=== PATIENT | female | born 1945 | race Caucasian/White ===

== ENCOUNTER → 2016-07-05 | Outpatient (CLI) | payer MEDICARE ==
[~2016-07-05] MED LIST: ACCUNEB SOL3 ML/NE1 IN; ALBUTEROL200 PUFFS/ IH; ALEVE220 MG PO; CALCIUM CARBONA1 TAB PO; CITALOPRAM HYDR40 MG PO; CITALOPRAM20 MG PO; CYANOCOBAL1000 MCG/2 IM; CYMBALTA30 MG PO; DIFLUCAN150 MG PO; FIORICET W/CODE1 CAP PO; FLUCONAZOLE150 MG PO; GABAPENTIN300 MG PO; HYDROCODONE-APA1 TA1 PO; KEFLEX 500MG.500 MG PO; LEVAQUIN 750 M750 MG PO; LEXAPRO 10 MG T10 MG PO; LORTAB 5/500 501 TAB PO; MACROBID 100MG100 MG PO; METHSCOPOLAMIN2.5 MG PO; MUCINEX600 M1 PO; OMNICEF 300 MG300 MG PO; PHENERGAN 25MG.25 M1 PO; PREDNISONE 20MG20 MG PO; PROTONIX 40MG T40 MG PO; PYRIDIUM 200MG200 MG PO; SINGULAIR 10 MG10 MG PO; SINGULAIR10 MG PO; SYMBICORT IH; SYMBICORT1 AER IH; TIZANIDINE4 MG PO; VERAMYST27.5 MCG/A NS; VITAMIN B121 TA1 IM; XANAX 1MG TABLET1 MG PO; XANAX0.5 MG PO; ZIAC 2.5 MG-6.21 TAB PO; ZOFRAN ODT4 MG PO; ZYRTEC10 M2 PO
[2016-07-05 09:23] LABS: BUN 13 mg/dL (7-18)
[2016-07-05 09:25] LABS: GFR (ESTIMATED) 121 ML/MIN (59-)
--- NOTE | 2016-07-08 07:23 | RADIOLOGY REPORT PS360 ---
CT ABD PELVIS W/WO CONTRAST INDICATION: CHRONIC UTI, LOWER ABD PAIN ORDERING PHYSICIAN: Tracy Blanco APRN PATIENT AGE: 71 years COMPARISON: 11/04/2014 TECHNIQUE: Axial images are obtained without and with contrast. Sagittal and coronal reformatted images are reviewed as well. FINDINGS: There is been a prior cholecystectomy. There is minimal prominence of the biliary radicles. A peripheral area of isointensity involves the posterior medial aspect of the right hepatic lobe at 18 x 19 mm not significantly changed showing some filling in on the venous phase images probably related to a hemangioma as previously described. No additional liver lesions are evident. The spleen, adrenal glands, and pancreas are unremarkable. No obstructing renal or ureteral calculi. There are small bilateral renal cyst. No solid renal mass or hydronephrosis. No urinary bladder stones. The bladder has an unremarkable appearance. No evidence of appendicitis or diverticulitis. There is diverticulosis. There is been a prior hysterectomy. No abnormal fluid collections or focal inflammatory change or mass evident. No adenopathy or aneurysm. No intestinal obstruction or free air. Moderate dextroscoliosis of the lumbar spine with generalized spondylosis and severe degenerative disc disease in the lower thoracic and upper lumbar region from T11 to L2. IMPRESSION: 1. No acute intra-abdominal or pelvic pathology. 2. Stable CT appearance of the abdomen compared to 11/04/2014. 3. No renal calculi or hydronephrosis. 4. Probable hemangioma the right lobe of the liver
== END ==
LOC: RAD 09:07
PROVIDERS: Nurse Practitioner Family
DX: R10.30 Lower abdominal pain, unspecified (principal); N39.0 Urinary tract infection, site not specified
CPT/HCPCS: Q9967

== ENCOUNTER → 2016-09-07 | Outpatient (CLI) | payer MEDICARE ==
--- NOTE | 2016-09-07 14:47 | RADIOLOGY REPORT PS360 ---
BONE DENSITOMETRY(HIP:LT SPINE HISTORY: POST MENOPAUSAL, OSTEOPENIA ORDERING PHYSICIAN: Tracy Blanco APRN PATIENT AGE: 71 years COMPARISON: None FINDINGS: The BMD measured at the left femoral neck is 0.820 g/cm squared with a T score of -1.6. This is considered Osteopenic according to the World Health Organization criteria. Fracture risk is Moderate. Treatment is advised. There is minimal left percent increase in bone density of the lumbar spine compared to 05/31/2013 and may be related to the overlying sclerotic elements of the vertebrae as opposed to true increase in bone density. The mean density of the hips is unchanged. IMPRESSION: Osteopenia, follow-up recommended August 2018.
--- NOTE | 2016-09-14 08:46 | RADIOLOGY REPORT PS360 ---
DIG MAMM-SCREEN NAHID W/CAD CAD Screening ORDERING PHYSICIAN : Tracy Blanco APRN PATIENT AGE: 71 years GENDER: Female COMPARISON: Previous mammograms: August 2015, 2014, July 2013, June 2012 INDICATION: Routine screening 71-year-old. Estrogen cream previous. Cyst aspiration right breast Noncontributory family history TECHNIQUE: Standard CC and MLO images were obtained. R2 CAD reviewed. FINDINGS: Asymmetric areas of density bilaterally again noted. . Specifically there are areas of asymmetric density seen towards upper-outer quadrant right and left breast RIGHT BREAST: Minor progression of the area labeled A.. It may be a intramammary lymph node but is shown incremental progression over the recent mammogram studies. It now measures up to 11 mm x 6 mm.. Well-defined margin but. Slightly lobulated. I believe this point it does warrant ultrasound additional & spot views.. A Area B.. More peripheral at the axillary tail of right breast is area labeled B. This is been seen over many studies and has shown overall regression. Not of concern. In fact this area fairly stable since 2012 & 2010. Most likely Asymmetric island of glandular tissue. LEFT BREAST: Stable with no significant new findings. Area of density at the lateral left breast on cc view dissipates on a this additional nipple profile cc left breast appears stable to previous studies. Follow-up left mammogram 1 year. IMPRESSION: .... . 1. Right breast: ultrasound and spot views suggested to further evaluate area labeled A . This Slightly lobulated nodular area may be benign intramammary node, but has shown progression now measuring 11 mm x 6 mm . 2. Left breast stable- follow-up in one year on left BI-RADS CATEGORY: 0_Incomplete: Need additional imaging. RECOMMENDED FOLLOWUP: ADD ADDITIONAL IMAGING (A letter has been sent to the patient regarding results of the study.)
== END ==
LOC: RAD 10:30
DX: Z12.31 Encounter for screening mammogram for malignant neoplasm of breast (principal); Z78.0 Asymptomatic menopausal state
CPT/HCPCS: G0202

== ENCOUNTER → 2016-10-13 | Outpatient (CLI) | payer MEDICARE ==
[2016-10-13 10:57] LABS: HEMOGLOBIN 12.5 g/dL (12.2-16.2); LYMPH # 1.2 K/mm3 (0.7-4.5); LYMPH % 34.2 % (10-50.0)
[2016-10-13 12:37] LABS: BUN 10 mg/dL (7-18)
[2016-10-13 12:42] LABS: GFR (ESTIMATED) 98 ML/MIN (59-)
== END ==
LOC: LAB 10:35
PROVIDERS: Nurse Practitioner Family
DX: E53.8 Deficiency of other specified B group vitamins (principal); I10 Essential (primary) hypertension; Z00.00 Encounter for general adult medical examination without abnormal findings

== ENCOUNTER → 2017-02-10 | Outpatient (CLI) | payer MEDICARE ==
[~2017-02-10] MED LIST changes: +CELEBREX 200MG200 MG PO
[2017-02-10 09:09] LABS: BUN 9 mg/dL (7-18)
[2017-02-10 09:13] LABS: GFR (ESTIMATED) 98 ML/MIN (59-)
[2017-02-10 09:18] LABS: HEMOGLOBIN 12.7 g/dL (12.2-16.2); LYMPH # 1.1 K/mm3 (0.7-4.5); LYMPH % 27.3 % (10-50.0)
--- NOTE | 2017-02-10 12:38 | RADIOLOGY REPORT PS360 ---
MRI-BRAIN W/WO HISTORY: Usual changes, loss of balance and blurred vision VERTIGO, VISUAL CHANGES ORDERING PHYSICIAN: Tracy Blanco APRN PATIENT AGE: 71 years COMPARISON: 03/09/2012 CT scan TECHNIQUE: Standard multiplanar multiecho sequences are performed without and with gadolinium enhancement. FINDINGS: No midline shift, mass effect, intracranial hemorrhage, hydrocephalus, or acute infarction is evident. There are few scattered periventricular and subcortical T2 white matter hyperintensities consistent with microangiopathic changes. Diffusion images show no evidence of acute infarction. Hippocampal gyri are symmetric as are the temporal horns of lateral ventricles. The pituitary and optic chiasm unremarkable appearance. The cerebellopontine angles, cerebellum, and brainstem are unremarkable. Small amount fluid is present in the mastoid sinuses bilaterally. No sinus air-fluid level is evident. IMPRESSION: 1. No acute intracranial findings. 2. Mild bilateral mastoid sinus disease. 3. 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
== END ==
LOC: RAD 08:45
PROVIDERS: Nurse Practitioner Family
DX: R42 Dizziness and giddiness (principal); H53.9 Unspecified visual disturbance; M81.0 Age-related osteoporosis without current pathological fracture; I10 Essential (primary) hypertension; Z79.899 Other long term (current) drug therapy
CPT/HCPCS: A9576